=== PATIENT | male | born 2000 | race Asian ===

== ENCOUNTER 2023-05-02 21:17 | Emergency (ER) | payer OTHER, SELFPAY ==
[2023-05-02 21:41] VITALS: BP 129/62; PULSE 80; RESP 16; TEMP 38.7; O2SAT 100
[2023-05-02 22:29] LABS: Influenza A QL RT-PCR Positive (Negative); Influenza B QL RT-PCR Negative (Negative); RSV RNA, RT-PCR Negative (Negative); SARS-CoV-2 RNA PCR Negative (Negative)
--- NOTE | 2023-05-02 22:39 | ED.GENADULT ---
HPI - General Adult General Chief complaint: Fever Stated complaint: fever/chills/KNIGHT/sore throat Time Seen by Provider: 05/02/23 22:11 Source: patient Mode of arrival: ambulatory Limitations: no limitations History of Present Illness HPI narrative: This is a 22-year-old male who presents to the ED with chief complaint of URI symptoms for the past 4 days. Reports initially had a lot of sore throat and cough but these have since resolved. Now continues to have fevers, body aches and headache. He has taken ibuprofen 200 mg with minimal relief. He has also tried NyQuil and DayQuil with minimal relief. Denies shortness of breath, abdominal pain, nausea, vomiting. Related Data Allergies Allergy/AdvReac Type Severity Reaction Status Date / Time No Known Allergies Allergy Verified 05/02/23 21:44 Review of Systems Review of Systems: All systems as dictated in HPI Exam Narrative: GENERAL: Well-appearing, well-nourished, and in no acute distress. HEAD: Normocephalic, atraumatic. EYES: PERRLA and EOMI. ENT: Nares clear, no rhinorrhea or epistaxis. Mucous membranes moist. Oropharynx without tonsillar hypertrophy exudate or other lesions. NECK: Supple. No adenopathy or masses. CHEST: No respiratory distress. Clear to auscultation. No wheezes rales or rhonchi HEART: Regular rate and rhythm. No murmur heard. Normal peripheral pulses. ABDOMEN: Soft, nontender, nondistended, normal active bowel sounds. MSK: Normal range of motion. No edema. SKIN: Warm, dry, no rash. NEURO: Alert and oriented x3. No focal deficits. PSYCH: Normal mood and affect. Course Vital Signs Vital signs: Vital Signs Temperature 101.6 F H 05/02/23 21:41 Pulse Rate 80 05/02/23 21:41 Respiratory Rate 16 05/02/23 21:41 Blood Pressure 129/62 05/02/23 21:41 Pulse Oximetry 100 05/02/23 21:41 Oxygen Delivery Room Air 05/02/23 21:41 Temperature 101.6 F H 05/02/23 21:41 Pulse Rate 76 05/02/23 23:19 Respiratory Rate 19 05/02/23 23:19 Blood Pressure 124/66 05/02/23 23:19 Pulse Oximetry 99 05/02/23 23:19 Oxygen Delivery Room Air 05/02/23 21:41 Medical Decision Making MDM Narrative Medical decision making narrative: This is a 22-year-old male who presents to the ED with chief complaint of URI symptoms and body aches. Vitals show fever to 101.6 but otherwise normal. Respiratory exam intact. Viral swabs are positive for flu A. Symptoms are consistent with viral syndrome due to influenza. He is well-appearing otherwise. He was given Tylenol and ibuprofen here. He has only been taking 200 mg of ibuprofen at home, instructed him to start taking 600 mg. Pt will be discharged in stable condition. Return precautions given and supportive measures discussed. Pt is understanding and agreeable with plan for discharge and follow-up with PCP. Vital Signs Vital Signs: Vital Signs Temperature 101.6 F H 05/02/23 21:41 Pulse Rate 80 05/02/23 21:41 Respiratory Rate 16 05/02/23 21:41 Blood Pressure 129/62 05/02/23 21:41 Pulse Oximetry 100 05/02/23 21:41 Oxygen Delivery Room Air 05/02/23 21:41 Temperature 101.6 F H 05/02/23 21:41 Pulse Rate 76 05/02/23 23:19 Respiratory Rate 19 05/02/23 23:19 Blood Pressure 124/66 05/02/23 23:19 Pulse Oximetry 99 05/02/23 23:19 Oxygen Delivery Room Air 05/02/23 21:41 Lab Data Labs: Lab Results 05/02/23 Range/Units 21:47 Influenza A (RT-PCR) Positive A (Negative) Influenza B (RT-PCR) Negative (Negative) RSV (RT-PCR) Negative (Negative) SARS-CoV-2 RNA (RT-PCR) Negative (Negative) Discharge Plan Discharge Clinical Impression: Influenza Patient Disposition: Home, Self-Care Condition: Stable Instructions: Antibiotic Form Additional Instructions: Your influenza test was positive today. Continue taking 600 mg of ibuprofen and 5 mg of Tylenol every 4-6 hours as needed for pain and fevers. Jones
[2023-05-02] MEDS: IBUPROFEN 400 MG TABLET 800 MG PO (22:52)
[2023-05-02] MEDS: ACETAMINOPHEN 500 MG TABLET 1000 MG PO (22:53)
[2023-05-02 23:19] VITALS: BP 124/66; PULSE 76; RESP 19; O2SAT 99
== END 2023-05-02 23:19 | disposition home or self-care (01) ==
PROVIDERS: Emergency Medicine; Emergency Provider Physician Assistant
DX: J10.1 Influenza due to other identified influenza virus with other respiratory manifestations (principal); Z20.822 Contact with and (suspected) exposure to COVID-19
CPT/HCPCS: 87637; 99283; A9270